=== PATIENT | female | born 1985 | race Asian ===

== ENCOUNTER 2020-12-26 13:32 | Emergency (ER) | payer OTHER ==
[2020-12-26 13:39] VITALS: PULSE 73; TEMP 97; BMI 31.8
[2020-12-26] MEDS ORDERED: ACETAMINOPHEN 1000 MG/100 ML VIAL IVPB ONE (14:00)
[2020-12-26] MEDS ORDERED: SODIUM CHLORIDE 0.9% 500 ML INFUS.BAG IV ONE (14:00)
[2020-12-26] MEDS ORDERED: ACETAMINOPHEN INJECTION 100 ML IVPB ONE (14:16)
[2020-12-26 14:39] LABS: BASO % 0.2 % (0-2.0); EOS % 0.2 % (0-4.5); HEMATOCRIT 41.3 % (32.4-45.2); HEMOGLOBIN 13.9 GM/dL (10.7-15.3); LYMPH % 13.7 % (8-40); MCH 29.4 pg (25.7-33.7); MCHC 33.7 g/dl (32.0-36.0); MEAN CELL VOLUME 87.4 fl (80-96); MEAN PLT VOLUME 9.6 fl (7.5-11.1); MONO % 6.6 % (3.8-10.2); NEUT % 79.3 % (42.8-82.8); PLATELET COUNT 240 10^3/uL (134-434); RBC 4.72 M/mm3 (3.60-5.2); RDW 13.5 % (11.6-15.6); WHITE BLOOD COUNT 10.6 K/mm3 (4.0-10.0)
[2020-12-26] MEDS ORDERED: KETOROLAC TROMETHAMINE 15 MG/ML VIAL IM ONE (14:53)
[2020-12-26] MEDS ORDERED: KETOROLAC TROMETHAMINE 30 MG/1 ML VIAL ONE (14:54)
[2020-12-26 14:58] LABS: CALCIUM 8.4 mg/dL (8.5-10.1)
[2020-12-26 14:59] LABS: ALBUMIN 3.2 g/dl (3.4-5.0); BLOOD UREA NITROGEN 11.1 mg/dL (7-18)
[2020-12-26] MEDS ORDERED: ONDANSETRON 4 MG/2 ML VIAL IVPUSH ONE (15:01)
[2020-12-26 15:02] LABS: CREATININE 0.8 mg/dL (0.55-1.3)
[2020-12-26] MEDS ORDERED: KETOROLAC TROMETHAMINE 30 MG/1 ML VIAL IVPUSH ONE (15:02)
[2020-12-26 15:03] LABS: BILIRUBIN,TOTAL 0.5 mg/dL (0.2-1)
[2020-12-26] MEDS ORDERED: ONDANSETRON 4 MG/2 ML VIAL ONE (15:03)
[2020-12-26] MEDS ORDERED: morphine CARPU-JECT 2 MG/1 ML DISP.SYRIN IVPUSH ONE (16:30)
[2020-12-26 16:50] LABS: EPI CELLS >36 /uL (0-25.1); HYALINE CASTS 5 /uL (0-3.1); PH,URINE 5.5 (5.0-8.0); URINE APPEARANCE CLOUDY; URINE BACTERIA 118 /uL (0-1359); URINE BILIRUBIN NEGATIVE (NEGATIVE); URINE COLOR YELLOW; URINE GLUCOSE (UA) NEGATIVE (NEGATIVE); URINE KETONE 1+ (NEGATIVE); URINE LEUK ESTERASE NEGATIVE (NEGATIVE); URINE NITRITE NEGATIVE (NEGATIVE); URINE PROTEIN TRACE (NEGATIVE); URINE RBC 160 /uL (0-23.9); URINE WBC 19 /uL (0-25.8)
[2020-12-26] MEDS ORDERED: morphine SULFATE 4 MG/ML VIAL ONE ×2 (16:59→17:56)
[2020-12-26] MEDS ORDERED: morphine CARPU-JECT 4 MG/1 ML DISP.SYRIN IVPUSH ONE (17:48)
[2020-12-26 18:06] VITALS: BP 116/73
== END 2020-12-26 18:17 | disposition home or self-care (01) ==
LOC: JER 13:32
PROC: 3E033NZ Introduction of Analgesics, Hypnotics, Sedatives into Peripheral Vein, Percutaneous Approach (ICD-10-PCS; principal; 2020-12-26)
PROC: 3E0233Z Introduction of Anti-inflammatory into Muscle, Percutaneous Approach (ICD-10-PCS; 2020-12-26)
PROC: 3E033GC Introduction of Other Therapeutic Substance into Peripheral Vein, Percutaneous Approach (ICD-10-PCS; 2020-12-26)
PROC: 3E0333Z Introduction of Anti-inflammatory into Peripheral Vein, Percutaneous Approach (ICD-10-PCS; 2020-12-26)
PROC: 3E033GC Introduction of Other Therapeutic Substance into Peripheral Vein, Percutaneous Approach (ICD-10-PCS; 2020-12-26)
PROC: 3E033GC Introduction of Other Therapeutic Substance into Peripheral Vein, Percutaneous Approach (ICD-10-PCS; 2020-12-26)
DX: N12 Tubulo-interstitial nephritis, not specified as acute or chronic (principal)
CPT/HCPCS: 36415; 74176-TC; 76775-TC; 76830-TC; 80053; 81003; 84703; 85025; 87086; 93005; 93010; 99284-25; J0131

== ENCOUNTER 2021-01-10 04:47 | Day surgery (SDC) | payer OTHER ==
[2021-01-10 11:24] VITALS: BMI 32.9
[2021-01-10] MEDS ORDERED: PROPOFOL 20 ML ONE (13:22)
[2021-01-10] MEDS ORDERED: MIDAZOLAM HCL 2 MG/2 ML SINGLE DOSE VIAL ONE (13:22)
[2021-01-10] MEDS ORDERED: KETOROLAC TROMETHAMINE 30 MG/1 ML VIAL ONE (13:34)
[2021-01-10] MEDS ORDERED: ceFAZolin SODIUM 1 GM VIAL ONE (13:34)
[2021-01-10] MEDS ORDERED: DEXAMETHASONE SOD PHOSPHATE 4 MG/1 ML VIAL ONE (13:34)
[2021-01-10] MEDS ORDERED: ceFAZolin SODIUM 1 GM VIAL IVPB ONE (13:35)
[2021-01-10] MEDS ORDERED: SEVOFLURANE 250 ML BTL ONE (13:42)
[2021-01-10] MEDS ORDERED: ONDANSETRON 4 MG/2 ML VIAL IVPUSH PRN (13:56)
[2021-01-10] MEDS ORDERED: oxyCODONE HCL 5 MG TABLET PO PRN (13:56)
[2021-01-10] MEDS ORDERED: LACTATED RINGERS SOLUTION 1,000 ML IV SCH (14:00)
[2021-01-10] MEDS ORDERED: ACETAMINOPHEN INJECTION 100 ML IVPB ONE (15:29)
[2021-01-10] MEDS ORDERED: ACETAMINOPHEN 1000 MG/100 ML VIAL IVPB ONE ×2 (15:31→15:34)
[2021-01-10] MEDS ORDERED: oxyCODONE HCL 5 MG TABLET ONE (16:12)
[2021-01-10 16:58] VITALS: PULSE 73; TEMP 97.7
[2021-01-10 17:45] VITALS: BP 108/69
[2021-01-17 12:23] LABS: CA OXALATE MONOHYDR. 80%; SIZE 3X3; WEIGHT 37 MG
== END 2021-01-10 05:30 | disposition home or self-care (01) ==
LOC: JASU-SURG 04:47
PROVIDERS: ATTEND Urology
PROC: 0TC78ZZ Extirpation of Matter from Left Ureter, Via Natural or Artificial Opening Endoscopic (ICD-10-PCS; principal; 2021-01-10 13:00)
PROC: 0T778DZ Dilation of Left Ureter with Intraluminal Device, Via Natural or Artificial Opening Endoscopic (ICD-10-PCS; 2021-01-10 13:00)
DX: N13.2 Hydronephrosis with renal and ureteral calculous obstruction (principal)
CPT/HCPCS: 36415; 76000-TC-FY; 81025; 82360; 88300-TC; 94760; J0131

== ENCOUNTER 2022-08-20 21:20 | Emergency (ER) | payer OTHER ==
[2022-08-20 21:23] VITALS: BP 146/75; PULSE 98; RESP 18; TEMP 98.4; BMI 23.9
[2022-08-20 23:19] LABS: BASO % 0.3 % (0-2.0); EOS % 0.6 % (0-4.5); HEMATOCRIT 36.6 % (32.4-45.2); HEMOGLOBIN 12.4 GM/dL (10.7-15.3); LYMPH % 23.6 % (8-40); MCH 29.4 pg (25.7-33.7); MCHC 33.7 g/dl (32.0-36.0); MEAN CELL VOLUME 87.2 fl (80-96); MEAN PLT VOLUME 8.8 fl (7.5-11.1); NEUT % 67.5 % (42.8-82.8); PLATELET COUNT 214 10^3/uL (134-434); RDW 14.6 % (11.6-15.6)
[2022-08-21 01:23] LABS: PH,URINE 5.5 (5.0-8.0); URINE APPEARANCE CLEAR; URINE BILIRUBIN NEGATIVE (NEGATIVE); URINE COLOR YELLOW; URINE GLUCOSE (UA) NEGATIVE (NEGATIVE); URINE KETONE TRACE (NEGATIVE); URINE LEUK ESTERASE NEGATIVE (NEGATIVE); URINE NITRITE NEGATIVE (NEGATIVE); URINE PROTEIN NEGATIVE (NEGATIVE)
== END 2022-08-21 00:35 | disposition home or self-care (01) ==
LOC: JER 21:20
DX: O26.891 Other specified pregnancy related conditions, first trimester (principal); R10.9 Unspecified abdominal pain; O20.9 Hemorrhage in early pregnancy, unspecified; R51.9 Headache, unspecified; O99.341 Other mental disorders complicating pregnancy, first trimester; F41.9 Anxiety disorder, unspecified; M54.9 Dorsalgia, unspecified; Z3A.01 Less than 8 weeks gestation of pregnancy
CPT/HCPCS: 36415; 76817-TC; 81003; 84702; 85025; 86850; 86900; 86901; 99284-25

== ENCOUNTER 2022-12-23 20:15 | Emergency (ER) | payer OTHER ==
[2022-12-23 20:32] VITALS: RESP 18; BMI 30.1
[2022-12-23 21:03] VITALS: BP 110/61; PULSE 102; TEMP 98.1
== END 2022-12-23 23:42 | disposition home or self-care (01) ==
LOC: JER 20:15
DX: O46.92 Antepartum hemorrhage, unspecified, second trimester (principal); Z3A.24 24 weeks gestation of pregnancy
CPT/HCPCS: 76801-TC; 76817-TC; 99284-25